=== PATIENT | female | born 2000 | race Caucasian/White ===

== ENCOUNTER 2025-09-05 13:15 | Emergency (ER) | payer BC ==
[2025-09-05 13:45] LABS: Glucose, Urine (Dipstick) Normal (Negative); Leukocyte Negative (Negative); Protein, Urine (Dipstick) 15 mg/dl (Neg-Trace); Specific Gravity, Urine 1.020 (1.005-1.030)
[2025-09-05 13:48] LABS: #Basophils Less than 0.03 10x3/uL (0.0-0.2); #Eosinophils Less than 0.03 10x3/uL (0.0-0.5); #Monocytes 1.04 10x3/uL (0.0-1.1); #Neutrophils 4.81 10x3/uL (1.5-8.4); %Basophils 0.2 % (0.0-2.0); %Eosinophils 0.2 % (0.0-6.0); %Lymphocytes 40.4 % (18.0-47.0); %Monocytes 10.4 % (0.0-10.0); %Neutrophils 48.3 % (40.0-75.0); Hematocrit 39.8 % (34.9-44.5); Hemoglobin 12.6 g/dL (12.0-15.5); Mean Corpuscular Hemoglobin 24.6 pg (27.0-33.0); Mean Corpuscular Volume 77.6 fL (81.6-98.3); Platelet Count 475 10x3/uL (150-450); Red Blood Cell (RBC) Count 5.13 10x6/uL (3.90-5.03); White Blood Cell (WBC) Count 9.96 10x3/uL (3.5-10.5)
[2025-09-05 13:52] LABS: Bacteria/HPF Rare-Few HPF (None Seen); CAUTI Indications for Culture Pelvic or flank pain; RBC/HPF 21-50 HPF (0-3); WBC/HPF None Seen HPF (0-3)
[2025-09-05 13:53] LABS: Urine Culture Reflex No No
[2025-09-05] MEDS ORDERED: Ondansetron PF 4 MG/2 ML Vial ONE (14:00)
[2025-09-05] MEDS ORDERED: Ketorolac Tromethamine 30 MG (1 mL) VIAL ONE (14:01)
[2025-09-05 14:04] LABS: BHCG - Serum Negative (NEGATIVE); Pregs Control Background? CLEAR/WHITE (CLR/WHITE); Pregs Control Bar Appear? YES (CONTROL BAR)
[2025-09-05 14:05] LABS: ALT (SGPT) 10 U/L (Less than 34); AST (SGOT) 14 U/L (11-34); Albumin 3.7 g/dL (3.1-4.5); Alkaline Phosphatase 53 U/L (40-110); Anion Gap 13 mmol/L (10-20); BUN (Urea Nitrogen) 19 mg/dL (7.0-18.7); Bilirubin, Total 0.2 mg/dL (0.3-1.2); Calc. Creatinine Clearance 0 mL/min (70-130); Calcium 9.0 mg/dL (7.8-10.44); Carbon Dioxide 27 mmol/L (22-29); Chloride 101 mmol/L (98-107); Globulin 3.5 g/dL (2.4-3.5); Glucose 91 mg/dL (70-105); Potassium 3.0 mmol/L (3.5-5.1); Sodium 138 mmol/L (136-145)
== END 2025-09-05 16:19 | disposition home or self-care (01) ==
LOC: CSHERS 13:15
DX: E87.6 Hypokalemia (principal); M54.50 Low back pain, unspecified; R31.9 Hematuria, unspecified
CPT/HCPCS: 36415; 74176; 80053; 81001; 84703; 85025; 87086; 96361; 96374; 96375; J1885